=== PATIENT | male | born 1975 | race Caucasian/White ===

== ENCOUNTER 2017-03-09 20:36 | Emergency (ER) | payer SELFPAY ==
[~2017-03-09] VITALS: Ht 172.7 cm; Wt 77.5 kg
[2017-03-09 21:09] VITALS: Ht 172.7 cm; Wt 77.5 kg
--- NOTE | 2017-03-10 01:28 | ERD ---
ER Documentation Chief Complaint Date/Time DATE: 03/10/17 TIME: 01:28 Chief Complaint LT GROIN PAIN X 1 WEEK. STATES HE IS A [employer] HPI 51-year-old male presents with chief complaint of left-sided groin pain 1 week. Patient states that pain started after carrying heavy boxes at his work. Since then he has had constant left-sided groin pain which is aggravated with heavy lifting. He has taken Advil with mild relief, currently rates his pain a 5 out of 10 in severity. Denies sudden onset of pain, dysuria, penile discharge , fever, flank pain, and hematuria. ROS All systems reviewed and are negative except as per history of present illness. Medications Home Meds Active Scripts Ibuprofen* (Motrin*) 600 Mg Tab, 600 MG PO Q6, #30 TAB Prov:Elle Cruz PA-C 03/10/17 PMhx/Soc History of Surgery: No Anesthesia Reaction: No Hx Neurological Disorder: No Hx Respiratory Disorders: No Hx Cardiac Disorders: No Hx Psychiatric Problems: No Hx Miscellaneous Medical Probl: No Hx Alcohol Use: No Hx Substance Use: No Hx Tobacco Use: No Smoking Status: Never smoker Physical Exam Vitals Vital Signs Date Time Temp Pulse Resp B/P Pulse Ox O2 Delivery O2 Flow Rate FiO2 03/09/17 21:09 97.7 66 20 136/96 98 Physical Exam Const: [] Head: Atraumatic Eyes: Normal Conjunctiva ENT: Normal External Ears, Nose and Mouth. Neck: Full range of motion..~ No meningismus. Resp: Clear to auscultation bilaterally Cardio: Regular rate and rhythm, no murmurs Abd: Soft, non tender, non distended. Normal bowel sounds Skin: No petechiae or rashes Back: No midline or flank tenderness Ext: No cyanosis, or edema Neur: Awake and alert Psych: Normal Mood and Affect Results 24 hrs [place] [id number] Radiology Main Line: [phone] DIAGNOSTIC IMAGING REPORT Patient: JOAQUIN OSBORNE : 1975 Age: 41 Sex: M MR #: [id number] DOS: 03/10/17 0026 Ordering MD: Elle Cruz PA-C Location: [facility] Room/Bed: PROCEDURE: Scrotal ultrasound CLINICAL INDICATION: Scrotal pain. TECHNIQUE: Scrotal ultrasound was performed with sagittal and transverse views. Valenzuela scale and color imaging was performed. Images were reviewed on high resolution PACS monitors. COMPARISON: None available FINDINGS: The right testicle measures 4.2 x 2.4 x 2.7 cm . There is normal size and echogenicity and morphology of the right testicle with normal blood flow. The right epididymis is normal. No hydrocele is seen. There is no evidence for a varicocele.. The left testicle measures 4.6 x 2.4 x 2.7 cm. There is normal size and echogenicity and morphology of the left testicle with normal blood flow. The left epididymis is normal. No hydrocele is seen. There is no evidence for a varicocele.. IMPRESSION: 1. Unremarkable scrotal ultrasound. RPTAT: HMVK .Edward Higginbotham MD, MD Date Time Electronically viewed and signed by .Edward Higginbotham MD, on 03/10/2017 01:39 .K/ CC: Elle Cruz PA-C Procedures/[facility] Patient presented with left-sided groin pain after heavy lifting 1 week ago at work, on examination he has no swelling of the testicles, no obvious hernia present, no ecchymosis. Expect the patient that symptoms are likely due to groin strain versus hernia however I would be ordering an ultrasound to rule out testicular torsion or to confirm presence of hernia. Patient agreed to plan awaiting results of ultrasound prior to further management. Testicular ultrasound (interpretation by radiologist): IMPRESSION: 1. Unremarkable scrotal ultrasound. Explained the result of the ultrasound to the patient, ultrasound is normal. At this time low suspicion for epididymitis, varicocele, strangulated/ incarcerated hernia, testicular torsion, and STD/UTI. I gave patient instructions on groin strain, as well as a note for work to avoid heavy lifting. I suggested use of NSAIDs for pain control. At this time patient stable for discharge and outpatient management. Advised to follow-up with his PCP in 1-2 days. Departure Diagnosis: Primary Impression: Groin pain Laterality: left Qualified Code: R10.32 - Groin pain, left Additional Impression: Groin strain Encounter type: initial encounter Laterality: left Qualified Code: S76.212A - Groin strain, left, initial encounter Condition: Elle Dickson PA-C March 10, 2017 01:28
--- NOTE | 2017-03-10 01:39 | RADRPT ---
PROCEDURE: Scrotal ultrasound CLINICAL INDICATION: Scrotal pain. TECHNIQUE: Scrotal ultrasound was performed with sagittal and transverse views. Valenzuela scale and co prachi imaging was performed. Images were reviewed on high resolution PACS monitors. COMPARISON: None available FINDINGS: The right testicle measures 4.2 x 2.4 x 2.7 cm . There is normal size and echogenicity and morpholog y of the right testicle with normal blood flow. The right epididymis is normal. No hydrocele is seen . There is no evidence for a varicocele.. The left testicle measures 4.6 x 2.4 x 2.7 cm. There is normal size and echogenicity and morphology of the left testicle with normal blood flow. The left epididymis is normal. No hydrocele is seen. There is no evidence for a varicocele.. IMPRESSION: 1. Unremarkable scrotal ultrasound. RPTAT: [facility]VK .Edward Higginbotham MD, MD Date Time Electronically viewed and signed by .Edward Higginbotham MD, on 03/10/2017 01:39 .K/
[2017-03-10] MEDS ORDERED: IBUP-1542 PO (01:47)
== END 2017-03-10 01:51 | disposition home or self-care (01) ==
LOC: FTE 20:36
DX: S76.212A Strain of adductor muscle, fascia and tendon of left thigh, initial encounter (principal); X50.0XXA Overexertion from strenuous movement or load, initial encounter; Y92.89 Other specified places as the place of occurrence of the external cause
CPT/HCPCS: 76870